=== PATIENT | female | born 1990 | race Caucasian/White ===

== ENCOUNTER 2016-05-26 10:13 | Outpatient (CLI) ==
[2015-04-22 07:20] VITALS: BMI 18.4
[2016-05-26 14:00] LABS: FLU INTERNAL QC INTERNAL QC VALID; RAPID FLU A NEGATIVE (NEGATIVE); RAPID FLU B NEGATIVE (NEGATIVE)
== END 2016-05-26 10:14 | disposition home or self-care (01) ==
LOC: LAB 10:13
PROVIDERS: ATTEND Nurse Practitioner Family
DX: R50.9 Fever, unspecified (principal); R52 Pain, unspecified
CPT/HCPCS: 87651; 87804; 87880

== ENCOUNTER 2016-07-28 21:39 | Emergency (ER) ==
[2016-07-28 21:50] VITALS: BP 105/69; TEMP 99.4; BMI 19.3
[2016-07-28] MEDS ORDERED: BACTRIM DS 800/160 MG PO STA (22:14)
[2016-07-28] MEDS ORDERED: MOTRIN PO STA (22:14)
--- NOTE | 2016-07-28 22:16 | ED.PDOC ---
General ED Provider: Dr. TRUNG GIBBONS Chief Complaint: Toe Pain/Injury Stated Complaint: Patient states that she has ingrown toenail on right inner aspect of great toe. It started getting sore 2 days ago after picking at it, has progressively gotten worse, Time Seen by Physician: 22:14 Mode of Arrival: Walk-In Information Source: Patient Exam Limitations: No limitations Primary Care Provider: RADHA CONTRERAS Nursing and Triage Documentation Reviewed and Agree: Yes Skin Complaint Exam - Skin/Soft Tissue Complaint/Exam Onset/Duration: 1 week Symptoms Are: Still present Timing: Constant Initial Severity: Moderate Current Severity: Severe Location: Right Great Toe Character: Reports: Redness, Swelling Aggravating: Reports: Touch Associated Signs and Symptoms: Reports: Tenderness. Denies: Fever, Chills, Itching, Drainage, Bruising, Red streaks, Joint swelling Related History: Denies: Similar episode, Recent trauma Related Surgical History: Reports: None Recent Exposure to Others w/Similar Symptoms: No Skin Findings: Present: Other (slightly swollen with clearish drainage ) Joint Tenderness Present: Yes Differential Diagnoses: Infection Review of Systems - Review Of Systems Constitutional: Reports: No symptoms Eyes: Reports: No symptoms Ears, Nose, Mouth, Throat: Reports: No symptoms Respiratory: Reports: No symptoms Cardiac: Reports: No symptoms GI: Reports: No symptoms : Reports: No symptoms Musculoskeletal: Reports: No symptoms Skin: Reports: Other (right great toe pain and swelling) Neurological: Reports: Anxiety Endocrine: Reports: No symptoms Hematologic/Lymphatic: Reports: No symptoms All Other Systems: Reviewed and Negative Past Medical History - Past Medical History Previously Healthy: Yes Endocrine: Reports: None Cardiovascular: Reports: None Respiratory: Reports: None Hematological: Reports: None Gastrointestinal: Reports: None Genitourinary: Reports: None Neuro/Psych: Reports: None Musculoskeletal: Reports: None Cancer: Reports: None Last Menstrual Period: 4 WEEKS AGO - Surgical History General Surgical History: Reports: None, Unknown - Family History Family History: Reports: Unknown - Social History Smoking Status: Never smoker Hx Substance Use: No Alcohol Screening: None - Immunizations Tetanus Shot up to Date: Yes Physical Exam - Physical Exam Appearance: Thin Ill-appearing: Mild Pain Distress: Moderate Musculoskeletal: Edema Skin: Warm, Dry Neurological: Alert, Oriented Psychiatric: Anxious Critical Care Note - Critical Care Note Total Time (mins): 0 Course - Course Orders, Labs, Meds: Orders Category Date Time Status Ibuprofen [Motrin] MEDS 07/28/16 22:14 Discontinued 800 mg PO ONCE STA Sulfamethoxazole/Trimethoprim [Bactrim Ds 800/160 mg] MEDS 07/28/16 22:14 Discontinued 1 tab PO ONCE STA Medications Discontinued Medications Generic Name Dose Route Start Last Admin Trade Name Freq PRN Reason Stop Dose Admin Ibuprofen 800 mg 07/28/16 22:14 07/28/16 22:32 Motrin PO 07/28/16 22:15 800 mg ONCE STA Administration Trimethoprim/Sulfamethoxazole 1 tab 07/28/16 22:14 07/28/16 22:32 Bactrim Ds 800/160 Mg PO 07/28/16 22:15 1 tab ONCE STA Administration Vital Signs: Temp Pulse Resp BP Pulse Ox 07/28/16 21:40 99.4 F 82 18 105/69 99 Departure - Departure Time of Disposition: 22:41 Disposition: HOME SELF-CARE Discharge Problem: Ingrown right big toenail Instructions: Ingrown Nail (ED) Condition: Stable Pt referred to PMD for follow-up: Yes Additional Instructions: Take medications as prescribed Follow up with PCP in 3 days Prescriptions: Ibuprofen [Motrin] 600 mg PO Q6H PRN #30 tablet PRN Reason: Analgesia Sulfamethoxazole/Trimethoprim [Bactrim Ds Tablet] 1 each PO BID #20 tablet Allergies/Adverse Reactions: Allergies Penicillins Allergy (Severe, Verified 07/28/16 21:48) rash Home Medications: Ambulatory Orders Ibuprofen [Motrin] 600 mg PO Q6H PRN #30 tablet 07/28/16 Sulfamethoxazole/Trimethoprim [Bactrim Ds Tablet] 1 each PO BID #20 tablet 07/28 Disposition Discussed With: Patient, Family
== END 2016-07-28 22:50 | disposition home or self-care (01) ==
LOC: ED 21:39
DX: L60.0 Ingrowing nail (principal)
CPT/HCPCS: 99283

== ENCOUNTER 2018-05-30 14:58 | Outpatient (CLI) | END 2018-05-30 14:59 | disposition home or self-care (01) | LOC: RHC-LAB 14:58 → FCC-LAB 14:59 | PROVIDERS: ATTEND Family Medicine | DX: J32.9 Chronic sinusitis, unspecified (principal) | CPT/HCPCS: 87502 ==

== ENCOUNTER 2018-06-14 18:08 | Emergency (ER) ==
[2018-06-14 18:08] VITALS: BMI 19.3
[2018-06-14 18:12] VITALS: BP 112/67; TEMP 101.3
--- NOTE | 2018-06-14 18:22 | ED.PDOC ---
General ED Provider: Dr. EVANGELINA HUDSON MD Chief Complaint: Respiratory Complaint Stated Complaint: sinus drainage cough Time Seen by Physician: 18:16 Mode of Arrival: Walk-In Information Source: Patient, Family Exam Limitations: No limitations Primary Care Provider: TATE HARGROVE Nursing and Triage Documentation Reviewed and Agree: Yes Does patient meet sepsis criteria?: No If yes, has appropriate treatment been initiated?: Yes System Inflammatory Response Syndrome: Not Applicable Sepsis Protocol: For patient's 13 years and over: Temp is 96.8 and below OR 101 and greater Pulse >90 BPM Resp >20/minute Acutely Altered Mental Status Are patient's symptoms suggestive of a new infection, such as: -Pneumonia -Skin, Soft Tissue -Endocarditis -UTI -Bone, Joint Infection -Implantable Device -Acute Abdominal Infection -Wound Infection -Meningitis -Blood Stream Catheter Infection -Unknown Review of Systems - Review Of Systems Constitutional: Reports: No symptoms Eyes: Reports: No symptoms Ears, Nose, Mouth, Throat: Reports: No symptoms, Nose discharge Respiratory: Reports: No symptoms, Cough Cardiac: Reports: No symptoms GI: Reports: No symptoms : Reports: No symptoms Musculoskeletal: Reports: No symptoms Skin: Reports: No symptoms Neurological: Reports: No symptoms Endocrine: Reports: No symptoms Hematologic/Lymphatic: Reports: No symptoms All Other Systems: Reviewed and Negative Past Medical History - Past Medical History Previously Healthy: Yes Endocrine: Reports: None Cardiovascular: Reports: None Respiratory: Reports: None Hematological: Reports: None Gastrointestinal: Reports: None Genitourinary: Reports: None Neuro/Psych: Reports: None Musculoskeletal: Reports: None Cancer: Reports: None Last Menstrual Period: 20 weeks - Surgical History General Surgical History: Reports: None, Unknown - Family History Family History: Reports: Unknown - Social History Smoking Status: Never smoker Hx Substance Use: No Alcohol Screening: None Physical Exam - Physical Exam Appearance: Well-appearing, No pain distress, Well-nourished, Thin Ill-appearing: Mild Pain Distress: None Eyes: VERONICA, EOMI, Conjunctiva clear ENT: Ears normal, Nose normal, Oropharynx normal Respiratory: Airway patent, Breath sounds clear, Breath sounds equal, Respirations nonlabored Cardiovascular: RRR, Pulses normal, No rub, No murmur GI/: Soft, Nontender, No masses, Bowel sounds normal, No Organomegaly Musculoskeletal: Normal strength, ROM intact, No edema, No calf tenderness Skin: Warm, Dry, Normal color Neurological: Sensation intact, Motor intact, Reflexes intact, Cranial nerves intact, Alert, Oriented Psychiatric: Affect appropriate, Mood appropriate Critical Care Note - Critical Care Note Total Time (mins): 0 Course - Course Vital Signs: Temp Pulse Resp BP Pulse Ox 06/14/18 18:09 101.3 F H 89 20 112/67 98 Departure - Departure Time of Disposition: 18:40 Disposition: HOME SELF-CARE Discharge Problem: Allergic rhinitis Qualifiers: Allergic rhinitis trigger: unspecified Allergic rhinitis seasonality: seasonal Qualified Code(s): J30.2 - Other seasonal allergic rhinitis Instructions: Allergic Rhinitis (ED) Condition: Good Pt referred to PMD for follow-up: Yes IPMP verified?: No Prescriptions: Prednisone 10 mg PO BID 5 Days #10 tablet NS Allergies/Adverse Reactions: Allergies Penicillins Allergy (Severe, Verified 06/14/18 18:12) rash Home Medications: Ambulatory Orders Prednisone 10 mg PO BID 5 Days #10 tablet NS 06/14/18 Transfer Form Completed: No Disposition Discussed With: Patient, Family
== END 2018-06-14 18:35 | disposition home or self-care (01) ==
LOC: ED 18:08
DX: R06.9 Unspecified abnormalities of breathing (principal); R05 Cough; R09.82 Postnasal drip; J30.2 Other seasonal allergic rhinitis
CPT/HCPCS: 99282